=== PATIENT | female | born 1995 | race Caucasian/White ===

== ENCOUNTER 2023-12-03 18:04 | Emergency (ER) | payer MEDICAID, SELFPAY ==
[2023-12-03 18:15] VITALS: BP 106/69; PULSE 90; RESP 17; TEMP 36.7; O2SAT 97; BMI 29.1
[2023-12-03 19:48] LABS: Basophils % 0.4 %; Eosinophils # 0.4 10^3/uL (0.0-0.8); Eosinophils % 3.8 %; Hematocrit 38.7 % (36-47); Lymphocytes # 2.5 10^3/uL (0.8-4.8); Lymphocytes % 24.3 %; Mean Corpuscular HGB Conc 31.5 g/dL (30-55); Mean Corpuscular Hemoglobin 29.5 pg (27-33); Mean Corpuscular Volume 93.5 fl (85-98); Mean Platelet Volume 9.7 fL (7.4-10.4); Monocytes # 0.6 10^3/uL (0.2-0.9); Monocytes % 5.7 %; Neutrophils # 6.86 10^3/uL (1.8-7.7); Neutrophils % 65.6 %; Nucleated Red Blood Cells % 0 %; Platelet Count 321 10^3/cmm (157-399); Red Blood Count 4.14 10^6/uL (3.85-5.65); White Blood Count 10.46 10^3/uL (3.29-11.43)
[2023-12-03 20:08] LABS: Anion Gap 13.6 (5-19); Blood Urea Nitrogen 13 mg/dL (6-20); Calcium 8.9 mg/dL (8.5-10.5); Carbon Dioxide 25 mmol/L (22-29); Chloride 105 mmol/L (98-107); Creatinine Clr Calc Pharmacy 122.3507; Glomerular Filtration Rate 98.3 mL/min (90-130); Glucose 99 mg/dL (65-115); Osmolality Calculated 288 mOsm/kg (285-295); Potassium 4.6 mmol/L (3.5-5.1); Sodium 139 mmol/L (136-145)
[2023-12-03 20:40] LABS: Alanine Aminotransferase 8 U/L (0-33); Albumin Level 4.2 g/dL (3.5-5.2); Alkaline Phosphatase 81 U/L (35-105); Aspartate Amino Transferase 12 U/L (0-32); Globulin 2.7 g/dL (1.3-4.6); Lipase 37 U/L (13-60); Total Bilirubin 0.2 mg/dL (0.15-1.2); Total Protein 6.9 g/dL (6.6-8.7)
--- NOTE | 2023-12-03 21:22 | CTR_ITS ---
PROCEDURE INFORMATION: Exam: CT Abdomen And Pelvis Without Contrast Exam date and time: 12/03/2023 10:09 PM Age: 28 years old Clinical indication: Nausea and vomiting; Abdominal pain; Right; Prior surgery; Surgery date: 6+ months; Surgery type: Appy; Patient HX: C/O RT flank pain with n/v; Additional info: R flank pain TECHNIQUE: Imaging protocol: Computed tomography of the abdomen and pelvis without contrast. Radiation optimization: All CT scans at this facility use at least one of these dose optimization techniques: automated exposure control; mA and/or kV adjustment per patient size (includes targeted exams where dose is matched to clinical indication); or iterative reconstruction. COMPARISON: No relevant prior studies available. RADIATION DOSE METRICS: Total DLP (mGy-cm): 697.89 FINDINGS: Liver: Normal. No mass. Gallbladder and biliary ducts: Normal. No calcified stones. No ductal dilation. Pancreas: Normal. No ductal dilation. Spleen: Normal. No splenomegaly. Adrenal glands: Normal. No mass. Kidneys and ureters: Normal. No hydronephrosis. Stomach and bowel: Unremarkable. No obstruction. No mucosal thickening. Appendix: The appendix is absent. Intraperitoneal space: Unremarkable. No free air. No significant fluid collection. Vasculature: Unremarkable. No abdominal aortic aneurysm. Lymph nodes: Unremarkable. No enlarged lymph nodes. Urinary bladder: Unremarkable as visualized. Reproductive: Unremarkable as visualized. Bones/joints: Unremarkable. No acute fracture. Soft tissues: Unremarkable. CT/CT kidney stone [id number] IMPRESSION: 1. No bowel obstruction or inflammatory process associated with the bowel. 2. No free air or significant free fluid in the abdomen or pelvis. 3. No hydronephrosis or renal calculus. No stone in the bladder.
[2023-12-03] MEDS: sodium chloride 0.9% 1,000 ML 999 ML IV (21:43)
[2023-12-03] MEDS: ondansetron 2 mg/ML SDV 2 mL 4 MG IVP (21:45)
[2023-12-03 21:47] VITALS: RESP 16; O2SAT 100
[2023-12-03] MEDS: morphine 4 mg/mL SDV 1 mL IVP (21:47)
[2023-12-03 21:51] VITALS: BP 103/63; PULSE 68; RESP 16; O2SAT 100
[2023-12-03 22:02] LABS: Add Urine Microscopic? YES; Bacteria Urine 1+ /hpf; Bilirubin Urine Neg (Negative); Blood Urine Neg (Negative); Glucose Urine UA Norm (Normal); Hyaline Casts Urine 0-4 /lpf; Ketones Urine 1+ (Negative); Leukocyte Esterase Urine 1+ (Negative); Mucus Urine 1+ /hpf; Nitrate Urine Negative (Negative); Protein Urine Neg (Negative); RBC Urine 0-4 /hpf (0-2); Urine Appearance Clear (CLEAR); Urine Color Yellow (Yellow); Urobilinogen Urine Neg (Negative); pH Urine 5 (5-7)
[2023-12-03 22:03] LABS: HCG Qualitative Urine. Negative (Negative)
[2023-12-03 23:44] VITALS: BP 99/49; PULSE 85; RESP 16; O2SAT 99
[2023-12-03] MEDS: ketorolac 30 mg/mL INJ IVP (23:44)
[2023-12-03] MEDS: cefTRIAXone 1,000 MG in sodium chloride 0.9% (plus) 50 ML 100 MG IV (23:44)
--- NOTE | 2023-12-04 00:31 | ED_ITS ---
HPI - Abdominal Pain 2 General: Chief Complaint: Abdominal Pain Stated Complaint: abd pain Time Seen by Provider: 12/03/23 21:11 History of Present Illness: 28-year-old female has had right-sided f lank pain and abdominal pain for the past 24 hours or so. She has vomited 7 times today she says. She believes she may have had a fever. Associated Symptoms: Reports dysuria, hematuria, nausea and vomiting; Denies diarrhea Review of Systems 2 ENMT: Denies: throat pain Card: Denies: chest pain Resp: Denies: dyspnea GI: Reports: abdominal pain, nausea and vomiting; Denies: diarrhea : Reports: flank pain, dysuria and hematuria; Denies: difficulty voiding or vaginal bleeding Musc: Reports: back pain Physical Exam 2 Const: GENERAL APPEARANCE: cooperative; not frail appearing HENMT: COMMON NORMALS: normocephalic, atraumatic and Normal external nose present HEAD & SCALP: normocephalic and atraumatic FACE & SINUS: normal facial exam and face symmetric NOSE: Normal external nose present Eye: COMMON NORMALS: Equal, round and reactive pupils present and EOMs intact bilaterally PUPIL: Yes Equal, round and reactive pupils present Neck/C-Spine: GENERAL: Yes trachea midline Chest: CHEST: Yes Symmetrical chest wall rise Resp: COMMON NORMALS: normal respiratory effort, No retractions, No use of accessory muscles and clear to auscultation bilaterally AUSCULTATION: clear to auscultation bilaterally Cardio: COMMON NORMALS: regular rate and regular rhythm RATE: regular rate RHYTHM: regular rhythm GI: COMMON NORMALS: Normal to inspection, nondistended, normoactive bowel sounds present PALPATION: Yes Tenderness to palpation present (GI) Details: RLQ and RUQ : BLADDER/KIDNEY EXAM: Yes CVA tenderness on the right Back/Pelvis: GENERAL BACK: Yes CVA tenderness Extremity: COMMON NORMALS: no pedal edema Neuro: MARGOT COMA SCALE: document GCS findings [place] coma scale eye opening: Spontaneous [place] coma scale verbal response: Orientated [place] coma scale motor response: Obey commands [place] coma scale total score: 15 S ENSORY EXAM: Yes extremities (intact) Psych: COMMON NORMALS: speech normal SPEECH: Yes normal speech Skin: COMMON NORMALS: no rashes or lesions noted GENERAL SKIN EXAM: no rashes or lesions noted Course 2 Vital Signs: Vital signs: Vital Signs Temperature 98.1 F 12/03/23 18:15 Pulse Rate 92 12/04/23 01:07 Respiratory Rate 16 12/04/23 01:07 Blood Pressure 97/55 12/04/23 01:07 Pulse Oximetry 98 12/04/23 01:07 Oxygen Delivery Me thod Room Air 12/03/23 23:44 MDM - Abdominal Pain Medical Decision Making Vitals have been stable. She is afebrile. White blood cell count is 10.5. Hemoglobin is 12.2. CT scan reveals an absent appendix. No hydronephrosis or renal calculi. No bowel obstruction. She will be allowed home. She does have a urinary tract infection. She will be treated for such. She knows to return for worsening symptoms. Lab Data 12/03/23 19:19 12/03/23 19:19 Labs/Radiology: Radiology Impressions Abdomen/Pelvis CT 12/03/23 21:22 IMPRESSION: 1. No bowel obstruction or inflammatory process associated with the bowel. 2. No free air or significant free fluid in the abdomen or pelvis. 3. No hydronephrosis or renal calculus. No stone in the bladder. Laboratory Results WBC 10.46 10^3/uL (3.29-11.43) 12/03/23 19:19 RBC 4.14 10^6/uL (3.85-5.65) 12/03/23 19:19 Hgb 12.20 g/dL (11.27-16.99) 12/03/23 19:19 Hct 38.7 % (36-47) 12/03/23 19:19 MCV 93.5 fl (85-98) 12/03/23 19:19 MCH 29.5 pg (27-33) 12/03/23 19:19 MCHC 31.5 g/dL (30-55) 12/03/23 19:19 RDW 12.0 % (12.1-15.1) L 12/03/23 19:19 Plt Count 321 10^3/cmm (157-399) 12/03/23 19:19 MPV 9.7 fL (7.4-10.4) 12/03/23 19:19 Neut % (Auto) 65.6 % 12/03/23 19:19 Lymph % (Auto) 24.3 % 12/03/23 19:19 [place] % (Auto) 5.7 % 12/03/23 19:19 Eos % (Auto) 3.8 % 12/03/23 19:19 Baso % (Auto) 0.4 % 12/03/23 19:19 Neut # (Auto) 6.86 10^3/uL (1.8-7.7) 12/03/23 19:19 Lymph # (Auto) 2.5 10^3/uL (0.8-4.8) 12/03/23 19:19 [place] # (Auto) 0.6 10^3/uL (0.2-0.9) 12/03/23 19:19 Eos # (Auto) 0.4 10^3/uL (0.0-0.8) 12/03/23 19:19 Baso # (Auto) 0.0 10^3/uL (0.0-0.1) 12/03/23 19:19 Nucleated RBC % (auto) 0 % 12/03/23 19:19 Nucleated RBCs # 0.0 /100WBC 12/03/23 19:19 Sodium 139 mmol/L (136-145) 12/03/23 19:19 Potassium 4.6 mmol/L (3.5-5.1) 12/03/23 19:19 Chloride 105 mmol/L (98-107) 12/03/23 19:19 Carbon Dioxide 25 mmol/L (22-29) 12/03/23 19:19 Anion Gap 13.6 (5-19) 12/03/23 19:19 BUN 13 mg/dL (6-20) 12/03/23 19:19 Creatinine 0.7 mg/dL (0.5-0.9) 12/03/23 19:19 GFR Calculation 98.3 mL/min (90-130) 12/03/23 19:19 Glucose 99 mg/dL (65-115) 12/03/23 19:19 Calculated Osmolality 288 mOsm/kg (285-295) 12/03/23 19:19 Calcium 8.9 mg/dL (8.5-10.5) 12/03/23 19:19 Total Bilirubin 0.2 mg/dL (0.15-1.2) 12/03/23 19:19 Direct Bilirubin 0.20 mg/dL (0.00-0.30) 12/03/23 19:19 AST 12 U/L (0-32) 12/03/23 19:19 ALT 8 U/L (0-33) 12/03/23 19:19 Alkaline Phosphatase 81 U/L (35-105) 12/03/23 19:19 C-Reactive Protein 3.0 mg/L (0.0-4.9) 12/03/23 19:19 Total Protein 6.9 g/dL (6.6-8.7) 12/03/23 19:19 Albumin 4.2 g/dL (3.5-5.2) 12/03/23 19:19 Globulin 2.7 g/dL (1.3-4.6) 12/03/23 19:19 Lipase 37 U/L (13-60) 12/03/23 19:19 HCG, Qual Negative (Negative) 12/03/23 21:45 Urine Color Yellow (Yellow) 12/03/23 21:45 Urine Appearance Clear (CLEAR) 12/03/23 21:45 Urine pH 5 (5-7) 12/03/23 21:45 Ur Specific [place] 1.020 (1.005-1.030) 12/03/23 21:45 Urine Protein Neg (Negative) 12/03/23 21:45 Urine Glucose (UA) Norm (Normal) 12/03/23 21:45 Urine Ketones 1+ (Negative) H 12/03/23 21:45 Urine Blood Neg (Negative) 12/03/23 21:45 Urine Nitrate Negative (Negative) 12/03/23 21:45 Urine Bilirubin Neg (Negative) 12/03/23 21:45 Urine Urobilinogen Neg mg/dL (Negative) 12/03/23 21:45 Ur Leukocyte Esterase 1+ (Negative) H 12/03/23 21:45 Urine RBC 0-4 /hpf (0-2) H 12/03/23 21:45 Urine WBC 5-10 /hpf (0-5) H 12/03/23 21:45 Ur Squamous Epith Cells 5-10 /hpf (0-5) H 12/03/23 21:45 Amorphous Sediment Not Reportable 12/03/23 21:45 Urine Bacteria 1+ /hpf (NONE) H 12/03/23 21:45 Hyaline Casts 0-4 /lpf H 12/03/23 21:45 Urine Mucus 1+ /hpf 12/03/23 21:45 All radiology interpretation(s) finalized by discharge Discharge Plan Discharge Patient Disposition: Home Clinical Impression: UTI (urinary tract infection) Condition: Stable Prescriptions: New ketorolac 10 mg tablet 10 mg PO TID PRN (Reason: pain) Qty: 10 0RF ondansetron 4 mg tablet,disintegrating 4 mg PO Q6H PRN (Reason: nausea and vomiting) Qty: 14 0RF cefdinir 300 mg capsule 300 mg PO BID Qty: 14 0RF Discharge Orders: Discharge ED (Routine); Ordered 12/04/23 Ordered By: Adalid Mujica Referrals: Landen Diez MD [Primary Care Provider] - 1-3 days Patient Instructions: Urinary Tract Infection in Women (ED), Opioid Safety, Pain Management Activity Restrictions/Additional Instructions: Use pain and nausea medication as needed. Antibiotics as directed. Return for vomiting liquids or medications, fever greater than 100 despite 2-3 doses of antibiotics, worsening pain despite treatment, other concerning symptoms. See your doctor next week. You will need to have your urine retested to make sure it is clearing. Coding Level of Care Code ED Visual Design Lead for Xiao Galvan
[2023-12-04 01:07] VITALS: BP 97/55; PULSE 92; RESP 16; O2SAT 98
== END 2023-12-04 01:30 | disposition home or self-care (01) ==
PROVIDERS: Emergency Provider Emergency Medicine; PCP Internal Medicine
DX: N39.0 Urinary tract infection, site not specified (principal)
CPT/HCPCS: 36415; 74176; 80048; 80076; 81001; 81025; 83690; 85025; 86140; 96365; 96375; 99285; J0696; J1885; J2270; J2405; J7030

== ENCOUNTER 2023-12-06 09:39 | Emergency (ER) | payer MEDICAID, SELFPAY ==
[2023-12-06 10:01] VITALS: BP 105/71; PULSE 68; RESP 14; TEMP 36.5; O2SAT 100
[2023-12-06 10:44] LABS: Basophils % 0.5 %; Eosinophils # 0.5 10^3/uL (0.0-0.8); Eosinophils % 6.7 %; Hematocrit 42.3 % (36-47); Lymphocytes # 1.8 10^3/uL (0.8-4.8); Lymphocytes % 24.4 %; Mean Corpuscular HGB Conc 31.4 g/dL (30-55); Mean Corpuscular Hemoglobin 29.4 pg (27-33); Mean Corpuscular Volume 93.6 fl (85-98); Mean Platelet Volume 9.3 fL (7.4-10.4); Monocytes # 0.4 10^3/uL (0.2-0.9); Monocytes % 4.8 %; Neutrophils # 4.71 10^3/uL (1.8-7.7); Neutrophils % 63.5 %; Nucleated Red Blood Cells % 0 %; Platelet Count 308 10^3/cmm (157-399); Red Blood Count 4.52 10^6/uL (3.85-5.65); Red Cell Distribution Width 11.8 % (12.1-15.1); White Blood Count 7.43 10^3/uL (3.29-11.43)
[2023-12-06 11:00] LABS: HCG, Serum Qual Negative (Negative)
[2023-12-06 11:03] LABS: Alanine Aminotransferase 9 U/L (0-33); Albumin Level 4.1 g/dL (3.5-5.2); Alkaline Phosphatase 83 U/L (35-105); Anion Gap 15.5 (5-19); Aspartate Amino Transferase 13 U/L (0-32); Blood Urea Nitrogen 13 mg/dL (6-20); Calcium 8.9 mg/dL (8.5-10.5); Carbon Dioxide 23 mmol/L (22-29); Chloride 105 mmol/L (98-107); Creatinine Clr Calc Pharmacy 95.1616; Globulin 3.1 g/dL (1.3-4.6); Glomerular Filtration Rate 73.5 mL/min (90-130); Glucose 64 mg/dL (65-115); Lipase 33 U/L (13-60); Osmolality Calculated 286 mOsm/kg (285-295); Potassium 4.5 mmol/L (3.5-5.1); Sodium 139 mmol/L (136-145); Total Bilirubin 0.2 mg/dL (0.15-1.2); Total Protein 7.2 g/dL (6.6-8.7)
--- NOTE | 2023-12-06 11:45 | W.ED.ABDPA2 ---
HPI - Abdominal Pain General: Chief Complaint: Abdominal Pain Stated Complaint: right side abd pain Time Seen by Provider: 12/06/23 09:40 Source: patient Mode of arrival: ambulatory Limitations: no limitations History of Present Illness: Patient is a 28-year-old female presents to ED today with complaint of upper abdominal pain. Patient was seen here at our facility few days ago for abdominal pain. She was reportedly diagnosed with a UTI. Patient states since that time she has continued to have pain. She states she took ibuprofen earlier today while at [facility] and she states it made her pain worse. She is pointing to her epigastric region for her discomfort. She states she has not [facility] due to polysubstance abuse including heavy alcohol use. Patient has not had any vomiting/hematemesis. She has not noted any black or tarry stools. CT scan on her last visit was unremarkable. MD elicited complaint: abdominal pain Pertinent past history: none Onset (ago): day(s) Pain Consistency: constant Location: Epigastric Severity: severe Pain scale (0-10): 9 Quality: burning Radiation: none Migration to: no migration Exacerbating factors: other (states ibuprofen made it worse) Relieving factors: nothing Associated Symptoms: Denies change in bowel habits, chills, diarrhea, dysuria, fever(s), hematemesis, nausea and vomiting Related Data: Patient : No Review of Systems Const: Denies: fever(s), chills, body aches, fatigue or malaise Card: Denies: chest pain Resp: Denies: dyspnea GI: Reports: abdominal pain; Denies: nausea, vomiting, hematemesis, diarrhea or change in bowel habits : Denies: flank pain, difficulty voiding, dysuria, urinary frequency, urinary urgency or urinary hesitancy Musc: Denies: neck pain, back pain, extremity pain or joint pain Skin/Breast: Denies: rash Neuro: Denies: headache(s), numbness in extremities, weakness in extremities, sensory changes or dizziness Physical Exam Const: COMMON NORMALS: no acute distress, average body habitus, patient oriented x3, no limitations, alert and well nourished GENERAL APPEARANCE: cooperative ORIENTATION/CONSCIOUSNESS: Yes awake, Yes oriented to person, Yes oriented to place and Yes oriented to time Eye: COMMON NORMALS: no scleral icterus Resp: COMMON NORMALS: normal respiratory effort and clear to auscultation bilaterally AUSCULTATION: clear to auscultation bilaterally Cardio: COMMON NORMALS: regular rate and regular rhythm RATE: regular rate RHYTHM: regular rhythm GI: COMMON NORMALS: Normal to inspection, nondistended, normoactive bowel sounds present, Soft to palpation, No hepatosplenomegaly present and no masses INSPECTION: Yes normal to inspection AUSCULTATION: Yes normoactive bowel sounds PALPATION: Yes Soft to palpation, Yes Tenderness to palpation present (GI) (epigastric), No Guarding due to palpation present (GI), No Rigid due to palpation and Yes No hepatosplenomegaly present : COMMON NORMALS: Yes no CVA tenderness BLADDER/KIDNEY EXAM: Yes no CVA tenderness Back/Pelvis: COMMON NORMALS: no CVA tenderness and thoracic and lumbar spine normal to inspection Extremity: GENERAL: Yes normal exam except as noted Neuro: MARGOT COMA SCALE: document GCS findings [place] coma scale eye opening: Spontaneous [place] coma scale verbal response: Orientated [place] coma scale motor response: Obey commands [place] coma scale total score: 15 COMMON NORMALS: patient oriented x3, moves all extremities, no focal motor deficits and no sensory deficits noted SENSORIUM/ORIENTATION: Yes alert, Yes oriented to person, Yes oriented to place and Yes oriented to time Skin: COMMON NORMALS: no rashes or lesions noted GENERAL SKIN EXAM: no rashes or lesions noted Course Vital Signs: Vital signs: Vital Signs Temperature 97.7 F 12/06/23 10:01 Pulse Rate 59 L 12/06/23 12:20 Respiratory Rate 16 12/06/23 12:20 Blood Pressure 112/57 12/06/23 12:20 Pulse Oximetry 97 12/06/23 12:20 Oxygen Delivery Me thod Room Air 12/06/23 12:20 MDM - Abdominal Pain Medical Decision Making Patient here with localized epigastric discomfort. She does not have any hematemesis or black or tarry stools. Her vital signs are stable. Her blood work has not changed much from her last ED visit. CT scan on her last visit was unremarkable. She got quite a bit of relief with a GI cocktail. As previously mentioned, she is not [facility] for polysubstance abuse including alcohol. She states prior to admission into [facility] she was drinking upwards of 3 pints of hard alcohol a day. My suspicion is that patient most likely has an alcohol induced gastritis. She states the ibuprofen that she took this morning made her symptoms worse. Will have her discontinue this as well as the ketorolac that she was prescribed on her last visit. Will place her on Carafate and Protonix. Return to ED precautions given. Medical Records I reviewed the patient's medical records. Lab Data I reviewed the patient's lab results. 12/06/23 10:21 12/06/23 10:21 Labs/Radiology: Laboratory Results WBC 7.43 10^3/uL (3.29-11.43) 12/06/23 10:21 RBC 4.52 10^6/uL (3.85-5.65) 12/06/23 10:21 Hgb 13.30 g/dL (11.27-16.99) 12/06/23 10:21 Hct 42.3 % (36-47) 12/06/23 10:21 MCV 93.6 fl (85-98) 12/06/23 10:21 MCH 29.4 pg (27-33) 12/06/23 10:21 MCHC 31.4 g/dL (30-55) 12/06/23 10:21 RDW 11.8 % (12.1-15.1) L 12/06/23 10:21 Plt Count 308 10^3/cmm (157-399) 12/06/23 10:21 MPV 9.3 fL (7.4-10.4) 12/06/23 10:21 Neut % (Auto) 63.5 % 12/06/23 10:21 Lymph % (Auto) 24.4 % 12/06/23 10:21 [place] % (Auto) 4.8 % 12/06/23 10:21 Eos % (Auto) 6.7 % 12/06/23 10:21 Baso % (Auto) 0.5 % 12/06/23 10:21 Neut # (Auto) 4.71 10^3/uL (1.8-7.7) 12/06/23 10:21 Lymph # (Auto) 1.8 10^3/uL (0.8-4.8) 12/06/23 10:21 [place] # (Auto) 0.4 10^3/uL (0.2-0.9) 12/06/23 10:21 Eos # (Auto) 0.5 10^3/uL (0.0-0.8) 12/06/23 10:21 Baso # (Auto) 0.0 10^3/uL (0.0-0.1) 12/06/23 10:21 Nucleated RBC % (auto) 0 % 12/06/23 10:21 Nucleated RBCs # 0.0 /100WBC 12/06/23 10:21 Sodium 139 mmol/L (136-145) 12/06/23 10:21 Potassium 4.5 mmol/L (3.5-5.1) 12/06/23 10:21 Chloride 105 mmol/L (98-107) 12/06/23 10:21 Carbon Dioxide 23 mmol/L (22-29) 12/06/23 10:21 Anion Gap 15.5 (5-19) 12/06/23 10:21 BUN 13 mg/dL (6-20) 12/06/23 10:21 Creatinine 0.9 mg/dL (0.5-0.9) 12/06/23 10:21 GFR Calculation 73.5 mL/min (90-130) L 12/06/23 10:21 Glucose 64 mg/dL (65-115) L 12/06/23 10:21 Calculated Osmolality 286 mOsm/kg (285-295) 12/06/23 10:21 Calcium 8.9 mg/dL (8.5-10.5) 12/06/23 10:21 Total Bilirubin 0.2 mg/dL (0.15-1.2) 12/06/23 10:21 AST 13 U/L (0-32) 12/06/23 10:21 ALT 9 U/L (0-33) 12/06/23 10:21 Alkaline Phosphatase 83 U/L (35-105) 12/06/23 10:21 Total Protein 7.2 g/dL (6.6-8.7) 12/06/23 10:21 Albumin 4.1 g/dL (3.5-5.2) 12/06/23 10:21 Globulin 3.1 g/dL (1.3-4.6) 12/06/23 10:21 Lipase 33 U/L (13-60) 12/06/23 10:21 HCG, Qual Negative (Negative) 12/06/23 10:21 Urine Color Yellow (Yellow) 12/06/23 10:18 Urine Appearance Clear (CLEAR) 12/06/23 10:18 Urine pH 5 (5-7) 12/06/23 10:18 Ur Specific [place] 1.010 (1.005-1.030) 12/06/23 10:18 Urine Protein Neg (Negative) 12/06/23 10:18 Urine Glucose (UA) Norm (Normal) 12/06/23 10:18 Urine Ketones Negative (Negative) 12/06/23 10:18 Urine Blood Neg (Negative) 12/06/23 10:18 Urine Nitrate Negative (Negative) 12/06/23 10:18 Urine Bilirubin Neg (Negative) 12/06/23 10:18 Urine Urobilinogen Norm mg/dL (Negative) 12/06/23 10:18 Ur Leukocyte Esterase Negative (Negative) 12/06/23 10:18 No radiology studies performed this visit Discharge Plan Discharge Patient Disposition: Home Clinical Impression: Gastritis Qualifiers: Gastritis type: alcoholic Chronicity: acute Gastritis bleeding: without bleeding Qualified Code(s): K29.20 - Alcoholic gastritis without bleeding Condition: Stable Prescriptions: New Carafate 1 gram tablet 1 g PO TID 14 Days Qty: 42 0RF Protonix 40 mg tablet,delayed release (DR/EC) 40 mg PO DAILY 28 Days Qty: 28 0RF Discontinued ketorolac 10 mg tablet 10 mg PO TID PRN (Reason: pain) Qty: 10 0RF No Action ondansetron 4 mg tablet,disintegrating 4 mg PO Q6H PRN (Reason: nausea and vomiting) Qty: 14 0RF cefdinir 300 mg capsule 300 mg PO BID Qty: 14 0RF Discharge Orders: Discharge ED (Routine); Ordered 12/06/23 Ordered By: Sonia Mckinnon Referrals: Landen Diez MD [Primary Care Provider] - Patient Instructions: Gastritis (DC) Activity Restrictions/Additional Instructions: DISCONTINUE KETOROLAC AND IBUPROFEN THESE CAN WORSEN YOUR GASTRITIS PAIN. AVOID SPICY, SALTY, ACIDIC FOODS. Coding Level of Care Code ED Event Lighting Specialist for Lolag Mandy
[2023-12-06] MEDS: pantoprazole DR 40 mg Tablet PO (11:58)
[2023-12-06] MEDS: lidocaine 2% viscous 15 ML, aluminum-mag hydrox-simethicon 30 ML, sucralfate oral liq 1 GM PO (11:59)
[2023-12-06 12:05] LABS: Add Urine Microscopic? NO; Charge for UA Resulting for Rev
[2023-12-06 12:14] LABS: Bilirubin Urine Neg (Negative); Blood Urine Neg (Negative); Glucose Urine UA Norm (Normal); Ketones Urine Negative (Negative); Leukocyte Esterase Urine Negative (Negative); Nitrate Urine Negative (Negative); Protein Urine Neg (Negative); Urine Appearance Clear (CLEAR); Urine Color Yellow (Yellow); Urobilinogen Urine Norm (Negative); pH Urine 5 (5-7)
[2023-12-06 12:20] VITALS: BP 112/57; PULSE 59; RESP 16; O2SAT 97
[2023-12-06 13:00] VITALS: BP 115/67; PULSE 58; RESP 16; TEMP 36.5; O2SAT 98
== END 2023-12-06 13:03 | disposition home or self-care (01) ==
PROVIDERS: Emergency Provider Physician Assistant; PCP Internal Medicine
DX: K29.20 Alcoholic gastritis without bleeding (principal)
CPT/HCPCS: 36415; 80053; 81003; 83690; 84703; 85025; 99283